=== PATIENT | female | born 1990 | race Caucasian/White ===

== ENCOUNTER 2017-06-28 11:03 | Emergency (ER) | payer MEDICAID ==
[~2017-06-28] VITALS: Ht 162.6 cm; Wt 80.3 kg
[~2017-06-28 11:03] MED LIST: AMOXICILLIN500 M1 PO; ATENOLOL 50MG T50 MG; BENTYL20 MG; GLUCOPHAGE1000 MG; IRON325; LEVOTHYROXIN0.025 MG PO; NEXIUM 40 MG CA40 M1 PO; PHENERGAN 25 MG25 M1 PO; SEROQUEL 50 MG50 MG NG; ULTRAM 50MG TAB50 MG PO
[2017-06-28 12:13] VITALS: BP 148/101
== END 2017-06-28 12:21 | disposition home or self-care (01) ==
LOC: M.ERS 11:03
DX: Z53.21 Procedure and treatment not carried out due to patient leaving prior to being seen by health care provider (principal)

== ENCOUNTER 2017-07-12 23:07 | Emergency (ER) | payer MEDICAID ==
[~2017-07-12] VITALS: Ht 162.6 cm; Wt 80.3 kg
[2017-07-12] MEDS ORDERED: EFFEXOR 5050 MG/1 T1 (23:21)
[2017-07-12] MEDS ORDERED: HEATHER0.35 MG (23:21)
[2017-07-12] MEDS ORDERED: LASIX (23:21)
[2017-07-12] MEDS ORDERED: HYDROCODON-ACE1 EAC5 (23:21)
[2017-07-12] MEDS ORDERED: LYRICA (23:22)
[2017-07-12] MEDS ORDERED: MELATONIN (23:22)
[2017-07-12 23:53] LABS: AMP/METHAMP Negative (Negative); BARBITURATES Negative (Negative); BENZODIAZEPINES Negative (Negative); COCAINE Negative (Negative); METHADONE Negative (Negative); OPIATES POSITIVE (Negative); PCP Negative (Negative); THC POSITIVE (Negative)
[2017-07-12 23:59] LABS: ABSOLUTE BASOPHILS 0.1 thou/uL (0.0-0.2); ABSOLUTE EOSINOPHILS 0.1 thou/uL (0.0-0.7); ABSOLUTE LYMPHOCYTES 2.4 thou/uL (0.8-5.3); ABSOLUTE NEUTROPHILS 10.6 thou/uL (1.6-8.1); BASOPHILS 0.5 %; EOSINOPHILS 0.7 %; HEMATOCRIT 34.9 % (37.0-47.0); HEMOGLOBIN 11.4 gm/dL (12.0-15.0); LYMPHOCYTES 17.1 %; MCH 27.7 pg (26.0-34.0); MCHC 32.8 g/dL (28.0-37.0); MCV 84.3 fL (80.0-100.0); MONOCYTES 6.8 %; MPV 7.5 fl. (7.2-11.1); NUCLEATED RBCS 0 /100WBC; PLATELET COUNT* 357 thou/uL (150-400); POLYS 74.9 %; RBC 4.13 mil/uL (4.20-5.00); RDW-CV 15.8 % (10.5-14.5); WBC 14.1 thou/uL (4.0-11.0)
[2017-07-13 00:04] LABS: URINE BILIRUBIN NEGATIVE (Negative); URINE BLOOD NEGATIVE (Negative); URINE CLARITY CLEAR; URINE COLOR YELLOW; URINE GLUCOSE-RANDOM NEGATIVE (Negative); URINE KETONES NEGATIVE (Negative); URINE LEUKOCYTES-REFLEX NEGATIVE (Negative); URINE NITRITE-REFLEX NEGATIVE (Negative); URINE PROTEIN NEGATIVE (Negative); URINE SPECIFIC GRAVITY 1.025 (1.005-1.030); URINE UROBILINOGEN 0.2 E.U./dl (0.2-1.0)
[2017-07-13 00:13] LABS: CALCIUM 8.7 mg/dL (8.5-10.1); CREATININE 0.9 mg/dL (0.6-1.3); POTASSIUM 3.8 mmol/L (3.5-5.1)
[2017-07-13] MEDS ORDERED: CLEOCIN HCL150 MG PO (00:27)
[2017-07-13 00:46] VITALS: BP 128/87
== END 2017-07-13 00:47 | disposition home or self-care (01) ==
LOC: M.ERS 23:07
PROVIDERS: Nurse Practitioner Family
DX: L02.212 Cutaneous abscess of back [any part, except buttock and flank] (principal); L03.312 Cellulitis of back [any part except buttock and flank]; F17.210 Nicotine dependence, cigarettes, uncomplicated; Z90.49 Acquired absence of other specified parts of digestive tract